=== PATIENT | female | born 1955 | race Caucasian/White ===

== ENCOUNTER 2019-02-14 07:03 | Emergency (ER) | payer MEDICARE ==
[~2019-02-14] VITALS: Ht 157.5 cm; Wt 59.9 kg
[~2019-02-14 07:03] MED LIST: LIPITOR PO; MONT10TA22 PO; OLME20TA13 PO
[2019-02-14] MEDS ORDERED: IPRATROPIUM BROMIDE 0.5 MG/2.5 ML NEBU NEB ONE (07:15)
[2019-02-14] MEDS ORDERED: ALBUTEROL SULFATE 2.5 MG/3 ML NEBU NEB ONE (07:15)
[2019-02-14] MEDS ORDERED: predniSONE 10 MG TABLET PO ONE (07:15)
[2019-02-14] MEDS ORDERED: IPRATROPIUM BROMIDE 0.5 MG/2.5 ML NEBU ONE (07:21)
[2019-02-14] MEDS ORDERED: ALBUTEROL SULFATE 2.5 MG/3 ML NEBU ONE (07:21)
[2019-02-14] MEDS ORDERED: predniSONE 50 MG TABLET ONE (07:37)
[2019-02-14] MEDS ORDERED: predniSONE 10 MG TABLET ONE (07:40)
--- NOTE | 2019-02-14 08:08 | NUR ---
0712 received report from night nurse. 0730 assessment completed, pt brother at bedside, pt states no difficulty breathing, lungs clear, shallow breaths, pt shaky and states she gets that way when she has asthma attack or she gets nervous, encouraged pt to discuss with PCP with f/u. VS: 145/77, 75, 19, 95%RA, and 97.4, pt states she is not cold, applied blanket and suggested it will help with her body temperature. 0753 prednisone 60mg given, ok to give 50mg and 10mg tabs per Dr. 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 VS 144/65, 74, 20, 95%RA and 98.2, pt states she has not taken her olmesartan this am, aware, pt instructed to resume home meds this morning, discharge instructions given, Rx given to brother and explained to pt to f/u with PCP regarding ER visit and shaking when attack occurs, educated on possible medication to help if ok with PCP, pt and family verbalized understanding. 0808 pt discharged, pt had steady gait and brother refused w/c, states he will help her to the car.
--- NOTE | 2019-02-14 08:08 | NUR ---
Patient discharged to home in stable conditon. Written and verbal after care instructions given. Patient verbalizes understanding of instructions.
== END 2019-02-14 09:26 | disposition home or self-care (01) ==
LOC: ER 07:06
DX: J45.901 Unspecified asthma with (acute) exacerbation (principal); I10 Essential (primary) hypertension; E78.00 Pure hypercholesterolemia, unspecified; Z79.899 Other long term (current) drug therapy; Z90.89 Acquired absence of other organs
CPT/HCPCS: 94640; 99283; J7512 ×2; A4663; J3590